=== PATIENT | male | born 1970 | race Caucasian/White ===

== ENCOUNTER 2017-02-02 19:00 | Emergency (ER) | payer BC ==
[~2017-02-02] VITALS: Ht 190.5 cm; Wt 90.7 kg
[~2017-02-02 19:00] MED LIST: CIPROFLOXACIN500 M2 ORAL; LACTULOSE20 GM/301 ORAL; NITROFURANTOIN100 M2 ORAL; UNOBMED
[2017-02-02] MEDS ORDERED: IBUPROFEN600 MG ORAL (22:07)
[2017-02-02 22:10] VITALS: BP 125/79
[2017-02-02 22:12] VITALS: BP 125/79
--- NOTE | 2017-02-04 07:37 | Emergency Room Report ---
History of Present Illness General Chief Complaint: General Complaint Source: Patient Present Illness HPI Patient is a 46-year-old male who presented after having increased lower extremity pain to his left leg. Patient gradual onset of symptoms. Patient was noted to have a palpable cord on the left leg. Pain was noted in the posterior midline of his left leg. Patient was sent in for DVT ultrasound. Patient denied any chest pain. Allergies: Coded Allergies: No Known Allergies (Verified , 10/17/10) Patient History Past Medical History: see triage record Reviewed Nursing Documentation: PMH: Agreed, PSxH: Agreed Nursing Documentation-PMH Past Medical History: No History, Except For Hx Cardiac Problems: No - HIV Pos Review of Systems All Other Systems: negative except mentioned in HPI Physical Exam Vital Signs Date Time Temp Pulse Resp B/P Pulse Ox O2 Delivery O2 Flow Rate FiO2 02/02/17 19:06 97.7 94 16 133/84 99 Room Air Sp02 EP Interpretation: reviewed, normal General Appearance: normal inspection, well appearing, no apparent distress, alert, GCS 15 Head: atraumatic ENT: normal ENT inspection, hearing grossly normal, normal voice Neck: normal inspection, full range of motion, supple, no bony tend Respiratory: normal inspection, lungs clear, normal breath sounds, no respiratory distress, no retraction, no wheezing Cardiovascular #1: regular rate, rhythm, no edema Gastrointestinal: normal inspection, normal bowel sounds, non tender, soft, no guarding, no hernia Genitourinary: no CVA tenderness Musculoskeletal: normal inspection, back normal, normal range of motion Neurologic: normal inspection, alert, oriented x3, responsive, cash applications clerk III-XII nml as tested, motor strength/tone normal, speech normal Psychiatric: normal inspection, judgement/insight normal, mood/affect normal Skin: normal inspection, normal color, no rash Medical Decision Making Diagnostic Impression: Primary Impression: Leg pain, left ER Course Patient presented for left extremity pain. Differential diagnosis included was not limited to muscle strain, deep venous thrombosis, radiculopathy, among others. DVT ultrasound of the lower extremity was ordered to possible DVT. DVT ultrasound read by radiology showed no evidence of deep venous thrombosis or vascular occlusion. Patient was advised to followup with his primary care physician for further evaluation. He is advised to take nonsteroidal anti- inflammatory medications for pain. Last Vital Signs Date Time Temp Pulse Resp B/P Pulse Ox O2 Delivery O2 Flow Rate FiO2 02/02/17 22:12 97.2 70 14 125/79 100 Room Air Status: improved Disposition: HOME, SELF-CARE Condition: Improved Scripts Ibuprofen* (MOTRIN*) 600 Mg Tablet 600 MG ORAL Q8H Y for For Pain, #30 TAB 0 Refills Prov: Lul Mariano 02/02/17 Patient Instructions: Pain Without a Known Cause Lul Mariano Feb 04, 2017 07:37
--- NOTE | 2017-02-14 10:35 | Diagnostic Imaging Report ---
APPROVED REPORT CPT Code: 73591 Present Symptoms Lower Extremity Pain: Left BILATERAL: Imaging reveals a patent deep venous system bilaterally. There is no evidence of thrombus within the femoral, popliteal or tibial segments. The greater saphenous veins are also within normal limits. Doppler indicates normal spontaneous flow within these segments.
== END 2017-02-02 22:12 | disposition home or self-care (01) ==
LOC: EMR 20:49
DX: M79.605 Pain in left leg (principal)
CPT/HCPCS: 93970; 99283

== ENCOUNTER → 2019-04-18 | Outpatient (CLI) | payer BC ==
[~2019-04-18] MED LIST changes: +IBUPROFEN600 MG ORAL
--- NOTE | 2019-04-18 17:48 | Diagnostic Imaging Report ---
Indication: Left leg pain Technique: Grayscale and duplex imaging of the left lower extremity arteries Comparison: none Findings: Grayscale and duplex images demonstrate no evidence of significant stenosis. Triphasic waveforms are present at all levels, demonstrating sharp systolic peaks Impression: Negative for evidence of left lower extremity arterial insufficiency
--- NOTE | 2019-04-18 17:48 | Diagnostic Imaging Report ---
Indication: Left leg pain Technique: Grayscale and duplex images of the left lower extremity veins Comparison: none Findings: Thrombus is seen within the left posterior tibial, peroneal veins. This results in absence of flow on Doppler images. Thrombus is also seen in the soleal vein. In the popliteal, femoral, and common femoral veins, grayscale and duplex images demonstrate no evidence of intraluminal thrombus. There is normal compressibility. Normal phasic Doppler waveforms, demonstrating normal augmentation response and no evidence of valvular insufficiency Impression: Positive for calf vein thrombosis involving the popliteal, peroneal, soleal veins No evidence of deep vein thrombosis within the popliteal, femoral, and common femoral veins
== END | disposition home or self-care (01) ==
LOC: VAS 13:58
DX: M79.605 Pain in left leg (principal); I82.432 Acute embolism and thrombosis of left popliteal vein
CPT/HCPCS: 93926; 93971

== ENCOUNTER 2019-04-26 17:06 | Emergency (ER) | payer BC ==
[~2019-04-26] VITALS: Ht 190.5 cm; Wt 90.7 kg
[2019-04-26 17:36] VITALS: BP 123/93
--- NOTE | 2019-04-26 17:36 | NUR ---
ED Nurse Note: PT FROM HOME CAME IN DUE TO STERNAL CP THAT RADIATES TO HIS RIGHT SIDE CP AND BACK STARTED A FEW HOURS AGO. DENIES ANY OTHER SYMPTOMS. PT HAS HX OF BLOOD CLOTS ON HIS LEFT LOWER LEG. HIS PRIMARY CARE PROVIDER SUGGESTED HIM TO GO TO ED FOR EVAL. PT IS ALOS TAKING ELIQUIS. AAO X4, AMBULATES WITH STEADY GAIT. NO RESPIRATORY DISTRESS. VSS.
[2019-04-26] MEDS ORDERED: Isovue-370 150ml vial INJ PRN (17:45)
--- NOTE | 2019-04-26 17:50 | Emergency Room Report ---
History of Present Illness General Chief Complaint: Chest Pain Source: Patient, Medical Record Present Illness HPI Department to rule out a pulmonary embolus. The patient is taking Eliquis for DVT. He states that the pain is decreased in his calf at this time and that there is less swelling. He started having chest pain yesterday that sternal radiating towards the right side and to his back. It is more positional and also if he looks up. Denies any fevers, productive cough, hemoptysis. He does have occasional reflux but this has not been bothering him recently. The pain is a 3/10 unless he is moving about. No rashes, headache, change in vision, other joint pain, dysuria. Allergies: Coded Allergies: No Known Allergies (Verified , 10/17/10) Patient History Past Medical History: see triage record Social History: Reports: drug use - see tox; Denies: smoking Social History Narrative Home Reviewed Nursing Documentation: PMH: Agreed; PSxH: Agreed Nursing Documentation-PMH Hx Cardiac Problems: No - HIV Pos Hx Hypertension: No - BPH Review of Systems All Other Systems: negative except mentioned in HPI Physical Exam Vital Signs Date Time Temp Pulse Resp B/P (MAP) Pulse Ox O2 Delivery O2 Flow Rate FiO2 04/26/19 17:26 98.2 61 18 117/79 (92) 94 Room Air Sp02 EP Interpretation: reviewed, normal General Appearance: well appearing, no apparent distress, GCS 15 Head: normocephalic, atraumatic Eyes: bilateral eye normal inspection, bilateral eye PERRL ENT: moist mucus membranes Neck: supple Respiratory: lungs clear, normal breath sounds, other - Mild chest wall tenderness sternal and right-sided Cardiovascular #1: regular rate, rhythm Cardiovascular #2: 2+ radial (R) Gastrointestinal: normal inspection, normal bowel sounds, non tender, no mass, non-distended Musculoskeletal: back normal, gait/station normal, normal range of motion, no calf tenderness, Chayito's Sign negative Neurologic: alert, oriented x3, grossly normal Psychiatric: mood/affect normal Skin: normal inspection, warm/dry Medical Decision Making Diagnostic Impression: Primary Impression: Chest pain Qualified Codes: R07.9 - Chest pain, unspecified Additional Impressions: H/O deep venous thrombosis Renal insufficiency Substance abuse ER Course Patient is on Eliquis for DVT complaining of chest pain. Differential includes pulmonary embolus, acute myocardial infarction, chest wall strain, pneumothorax amongst others. Evaluation with EKG, chest x-ray and labs. In addition a CT angiogram ordered. My suspicion is low however clinically this is still possible and needs to be excluded. EKG without injury. Chest x-ray no infiltrate. Labs with normal white count and CMP with mild renal insufficiency. Troponin negative. Tox positive for amphetamine. Despite the minimally elevated creatinine CT angiogram is indicated. CT angiogram without major PE. Unable to look at peripheral vasculature. Patient resting without discomfort without movement.. Discussed findings with patient. Patient stable for outpatient observation and treatment. Laboratory Tests Test 04/26/19 18:00 White Blood Count 5.8 K/UL (4.8-10.8) Red Blood Count 5.05 M/UL (4.70-6.10) Hemoglobin 15.2 G/DL (14.2-18.0) Hematocrit 45.5 % (42.0-52.0) Mean Corpuscular Volume 90 FL (80-99) Mean Corpuscular Hemoglobin 30.1 PG (27.0-31.0) Mean Corpuscular Hemoglobin Concent 33.4 G/DL (32.0-36.0) Red Cell Distribution Width 14.2 % (11.6-14.8) Platelet Count 180 K/UL (150-450) Mean Platelet Volume 5.5 FL (6.5-10.1) L Neutrophils (%) (Auto) 48.9 % (45.0-75.0) Lymphocytes (%) (Auto) 39.6 % (20.0-45.0) Monocytes (%) (Auto) 7.9 % (1.0-10.0) Eosinophils (%) (Auto) 2.4 % (0.0-3.0) Basophils (%) (Auto) 1.3 % (0.0-2.0) Prothrombin Time 9.8 SEC (9.30-11.50) Prothrombin Time INR 0.9 (0.9-1.1) PTT 32 SEC (23-33) Urine Color Yellow Urine Appearance Clear Urine pH 6 (4.5-8.0) Urine Specific Daisy 1.020 (1.005-1.035) Urine Protein Negative (NEGATIVE) Urine Glucose (UA) Negative (NEGATIVE) Urine Ketones 1+ (NEGATIVE) H Urine Blood 5+ (NEGATIVE) H Urine Nitrite Negative (NEGATIVE) Urine Bilirubin Negative (NEGATIVE) Urine Urobilinogen 4 MG/DL (0.0-1.0) H Urine Leukocyte Esterase 1+ (NEGATIVE) H Urine RBC 20-30 /HPF (0 - 0) H Urine WBC 0-2 /HPF (0 - 0) Urine Squamous Epithelial Cells Occasional /LPF Urine Bacteria None /HPF (NONE) Sodium Level 136 MMOL/L (136-145) Potassium Level 3.7 MMOL/L (3.5-5.1) Chloride Level 101 MMOL/L (98-107) Carbon Dioxide Level 30 MMOL/L (21-32) Anion Gap 5 mmol/L (5-15) Blood Urea Nitrogen 17 mg/dL (7-18) Creatinine 1.4 MG/DL (0.55-1.30) H Estimate Glomerular Filtration Rate 54.1 mL/min (>60) Glucose Level 105 MG/DL (74-106) Calcium Level 8.5 MG/DL (8.5-10.1) Total Bilirubin 1.0 MG/DL (0.2-1.0) Aspartate Amino Transferase (AST) 16 U/L (15-37) Alanine Aminotransferase (ALT) 25 U/L (12-78) Alkaline Phosphatase 103 U/L (46-116) Total Creatine Kinase 52 U/L (26-308) Troponin I 0.000 ng/mL (0.000-0.056) Pro-B-Type Natriuretic Peptide 22 pg/mL (0-125) Total Protein 6.7 G/DL (6.4-8.2) Albumin 3.8 G/DL (3.4-5.0) Globulin 2.9 g/dL Albumin/Globulin Ratio 1.3 (1.0-2.7) Urine Opiates Screen Negative (NEGATIVE) Urine Barbiturates Screen Negative (NEGATIVE) Phencyclidine (PCP) Screen Negative (NEGATIVE) Urine Amphetamines Screen Positive (NEGATIVE) H Urine Benzodiazepines Screen Negative (NEGATIVE) Urine Cocaine Screen Negative (NEGATIVE) Urine Marijuana (THC) Screen Negative (NEGATIVE) EKG Diagnostic Results Rate: normal Rhythm: NSR ST Segments: no acute changes Rhythm Strip Diag. Results EP Interpretation: yes Rhythm: NSR, no PVC's, no ectopy Chest X-Ray Diagnostic Results Chest X-Ray Diagnostic Results : Chest X-Ray Ordered: Yes # of Views/Limited/Complete: 1 View Indication: Chest Pain EP Interpretation: Yes Interpretation: no consolidation, no effusion, no pneumothorax Impression: No acute disease Electronically Signed by: Electronically signed by Tyrell Gillis MD CT/MRI/US Diagnostic Results CT/MRI/US Diagnostic Results : Imaging Test Ordered: CTA chest Impression No major PE Last Vital Signs Date Time Temp Pulse Resp B/P (MAP) Pulse Ox O2 Delivery O2 Flow Rate FiO2 04/26/19 21:40 98.6 78 20 123/93 99 Room Air Status: improved Disposition: HOME, SELF-CARE Condition: Improved Scripts Famotidine (PEPCID AC) 20 Mg Tablet 20 MG PO DAILY, #20 TAB Prov: Tyrell Gillis MD 04/26/19 Acetaminophen (Tylenol) 325 Mg Tablet 650 MG ORAL Q6H PRN for Prn Pain/Headache/Temp > 101, #20 TAB 0 Refills Prov: Tyrell Gillis MD 04/26/19 Tyrell Gillis MD Apr 26, 2019 17:50
--- NOTE | 2019-04-26 18:07 | Diagnostic Imaging Report ---
EXAM: XR Chest, 1 View CLINICAL HISTORY: Chest pain TECHNIQUE: Frontal view of the chest. COMPARISON: 02/20/2014 FINDINGS: Lungs: Unremarkable. No consolidation. Pleural space: Unremarkable. No pneumothorax. Heart: Unremarkable. No cardiomegaly. Mediastinum: Unremarkable. Bones/joints: Unremarkable. IMPRESSION: No acute radiographic findings..
--- NOTE | 2019-04-26 18:10 | NUR ---
ED Nurse Note: COLLECTED BLOOD/URINE THEN SENT.
[2019-04-26 18:17] LABS: BASOPHILS % (AUTO) 1.3 % (0.0-2.0); EOSINOPHILS % (AUTO) 2.4 % (0.0-3.0); HEMATOCRIT 45.5 % (42.0-52.0); HEMOGLOBIN 15.2 G/DL (14.2-18.0); LYMPHOCYTES % (AUTO) 39.6 % (20.0-45.0); MEAN CORPUSCULAR VOLUME 90 FL (80-99); MONOCYTES % (AUTO) 7.9 % (1.0-10.0); NEUTROPHILS % (AUTO) 48.9 % (45.0-75.0); PLATELET COUNT 180 K/UL (150-450); RED BLOOD COUNT 5.05 M/UL (4.70-6.10); RED CELL DISTRIBUTION WIDTH 14.2 % (11.6-14.8); WHITE BLOOD COUNT 5.8 K/UL (4.8-10.8)
[2019-04-26 18:24] LABS: APPEARANCE,URINE CLEAR; BILIRUBIN, URINE NEGATIVE (NEGATIVE); GLUCOSE, URINE (UA) NEGATIVE (NEGATIVE); KETONES,URINE 1+ (NEGATIVE); LEUKOCYTE ESTERASE ,URINE 1+ (NEGATIVE); NITRITE,URINE NEGATIVE (NEGATIVE); PH,URINE 6 (4.5-8.0); PROTEIN,URINE NEGATIVE (NEGATIVE); UROBILINOGEN,URINE 4 MG/DL (0.0-1.0)
[2019-04-26 18:26] LABS: COLOR,URINE YELLOW
[2019-04-26 18:27] LABS: INR 0.9 (0.9-1.1)
[2019-04-26 18:34] LABS: ANION GAP 5 mmol/L (5-15); BLOOD UREA NITROGEN 17 mg/dL (7-18); CALCIUM 8.5 MG/DL (8.5-10.1); CARBON DIOXIDE 30 MMOL/L (21-32); CHLORIDE 101 MMOL/L (98-107); CREATININE 1.4 MG/DL (0.55-1.30); POTASSIUM 3.7 MMOL/L (3.5-5.1); SODIUM 136 MMOL/L (136-145)
[2019-04-26 18:46] LABS: ALANINE AMINOTRANSFERASE 25 U/L (12-78); ALBUMIN 3.8 G/DL (3.4-5.0); ALBUMIN/GLOBULIN RATIO 1.3 (1.0-2.7); ALKALINE PHOSPHATASE 103 U/L (46-116); ASPARTATE AMINO TRANSFERASE 16 U/L (15-37); CREATINE KINASE 52 U/L (26-308)
--- NOTE | 2019-04-26 19:15 | NUR ---
HAND-OFF: Report given to SRIRAM TREVIZO.
--- NOTE | 2019-04-26 19:15 | NUR ---
ED Nurse Note: Patient resting comfortably, awaiting radiology for transport for CTA.
--- NOTE | 2019-04-26 19:57 | NUR ---
ED Nurse Note: Patient taked down for CTA.
--- NOTE | 2019-04-26 20:15 | NUR ---
ED Nurse Note: Patient returned from CTA.
--- NOTE | 2019-04-26 20:37 | Diagnostic Imaging Report ---
EXAM: CT Angiography Chest With Intravenous Contrast CLINICAL HISTORY: PE TECHNIQUE: Axial computed tomographic angiography images of the chest with intravenous contrast using pulmonary embolism protocol. CTDI is 75.73 mGy and DLP is 1744 mGy-cm. One or more of the following dose reduction techniques were used: automated exposure control, adjustment of the mA and/or kV according to patient size, use of iterative reconstruction technique. MIP reconstructed images were created and reviewed. Coronal and sagittal reformatted images were created and reviewed. COMPARISON: No relevant prior studies available. FINDINGS: Pulmonary arteries: There is no evidence of central pulmonary embolus within the pulmonary trunk or main pulmonary arteries. Otherwise, there is insufficient arterial opacification at time of imaging to assess for pulmonary embolic disease in the subsegmental and multiple segmental arteries. Aorta: Atherosclerosis. Aorta is limitedly characterized. No thoracic aortic aneurysm. Lungs: 4 mm nodule in the right lung middle lobe on image 7-80. Rectangular nodule within the subpleural right lower lung lobe measuring 5 mm on image 7-88. Flattened and linear opacities in the bilateral lower lobes favor atelectasis/scarring over infiltrate. Pleural space: Unremarkable. No significant effusion. No pneumothorax. Heart: Unremarkable. No cardiomegaly. No significant pericardial effusion. No evidence of RV dysfunction. Bones/joints: No acute fracture. No dislocation. Soft tissues: Unremarkable. Lymph nodes: Pleural based nodularity measuring 3 mm in the right lower lobe on image 7-65. Likely small fissural nodule also seen within the right lower lobe favoring lymph node. Few other subpleural and pleural-based nodularities with linear configuration favoring scarring seen in the upper lobes bilaterally, extensive at the apices. IMPRESSION: 1. Very limited opacification of the majority of the pulmonary arterial system, precluding accurate characterization for segmental or subsegmental embolic disease. No central large embolus is identified in the pulmonary trunk or main pulmonary arteries. No evidence for right heart strain. 2. Pulmonary nodules as above. Favored benign. Follow-up per Fleischner criteria if applicable. <MYCVCSECTION> [employer] 04/26/19 20:46 Verify Receipt Verified receipt with EMMY Henley. Report given to Dr. Gillis on 04/26 20:46 (-07:00) 04/26/19 21:06 Call From [facility] on 04/26 20:58 (-07:00) transferred to [place]
--- NOTE | 2019-04-26 20:40 | NUR ---
ED Nurse Note: Patient resting comfortably, no s/s of acute distress. Patient able to ambulate with steady gait to restroom. no complaints at this time.
[2019-04-26] MEDS ORDERED: PEPCID AC20 M2 PO (21:18)
[2019-04-26] MEDS ORDERED: TYLENOL325 MG ORAL (21:18)
[2019-04-26 21:40] VITALS: BP 123/93
--- NOTE | 2019-04-26 21:40 | NUR ---
ED Nurse Note: Patient cleared for discharge, ID band removed, IV removed. Patient verbalized understanding of discharge instructions. Patient escorted to discharge desk prior to depature with all belongings.
== END 2019-04-26 21:40 | disposition home or self-care (01) ==
LOC: EMR 18:40
DX: R07.9 Chest pain, unspecified (principal); F15.10 Other stimulant abuse, uncomplicated; Z86.718 Personal history of other venous thrombosis and embolism; N28.9 Disorder of kidney and ureter, unspecified; N40.0 Benign prostatic hyperplasia without lower urinary tract symptoms
CPT/HCPCS: 36415; 71045; 71275; 80053; 80307; 81003; 82550; 83880; 84484; 85025; 85610; 85730; 93005; 96360; 96361; 99284; Q9967